=== PATIENT | female | born 1995 | race American Indian/Alaskan Native ===

== ENCOUNTER 2019-05-19 22:14 | Emergency (ER) | payer SELFPAY ==
[2019-05-19 22:33] VITALS: BP 121/80
== END 2019-05-19 23:25 | disposition left against medical advice (07) ==
LOC: ED 22:14
DX: R07.89 Other chest pain (principal); Z53.21 Procedure and treatment not carried out due to patient leaving prior to being seen by health care provider

== ENCOUNTER 2019-05-21 11:49 | Emergency (ER) | payer SELFPAY ==
--- NOTE | 2019-05-21 11:55 | Event Note ---
ED Screening Note ED Screening Note: CP that began three days ago "feels like a ball sitting there" PMHx none no allergies to meds LNMP: 04/24/19 This initial assessment/diagnostic orders/clinical plan/treatment(s) is/are subject to change based on patients health status, clinical progression and re- assessment by fellow clinical providers in the ED. Further treatment and workup at subsequent clinical providers discretion. Patient/guardian urged not to elope from the ED as their condition may be serious if not clinically assessed and managed. Initial orders include: CXR
--- NOTE | 2019-05-21 12:33 | Emergency Department Report ---
ED Chest Pain HPI - General Chief Complaint: Urogenital-Female Stated Complaint: CHEST PAIN/VAGINAL DISCOMFORT Time Seen by Provider: 05/21/19 11:53 Source: patient Mode of arrival: Ambulatory Limitations: No Limitations - History of Present Illness Initial Comments: Eun is a very pleasant healthy 23year-old female without significant past me dical history who presents with chest wall pain syndrome radiating to the left. Pain feels like a ball in her chest. Worse with certain movements. Denies cough. Denies fever. Denies pain. No use of oral contraceptives. She also has mild vaginal discharge f without abdominal pain or fever. MD Complaint: chest pain -: Gradual, days(s) (3) Onset: during rest Pain Radiation: LUE Severity: mild Quality: dull Consistency: constant Worsens With: palpation, movement - Related Data Allergies Allergy/AdvReac Type Severity Reaction Status Date / Time No Known Allergies Allergy Verified 05/21/19 11:49 Heart Score - HEART Score History: Slightly suspicious EKG: Normal Age: < 45 Risk factors: No known risk factors Troponin: < normal limit HEART Score: 0 ED Review of Systems ROS: Stated complaint: CHEST PAIN/VAGINAL DISCOMFORT Other details as noted in HPI Comment: All other systems reviewed and negative Constitutional: denies: fever, malaise Respiratory: denies: cough Cardiovascular: chest pain ED Past Medical Hx - Past Medical History Previous Medical History?: No - Surgical History Additional Surgical History: leg - Social History Smoking Status: Current Every Day Smoker Substance Use Type: None ED Physical Exam - General Limitations: No Limitations General appearance: alert, in no apparent distress - Head Head exam: Present: atraumatic, normocephalic - Eye Eye exam: Present: normal appearance - ENT ENT exam: Present: mucous membranes moist - Neck Neck exam: Present: normal inspection, full ROM - Respiratory Respiratory exam: Present: normal lung sounds bilaterally. Absent: respiratory distress, wheezes, rales, rhonchi - Cardiovascular Cardiovascular Exam: Present: regular rate, normal rhythm, normal heart sounds. Absent: systolic murmur, diastolic murmur, rubs, gallop - GI/Abdominal GI/Abdominal exam: Present: soft, normal bowel sounds. Absent: distended, tenderness, guarding, rebound - Extremities Exam Extremities exam: Present: normal inspection - Back Exam Back exam: Present: normal inspection - Neurological Exam Neurological exam: Present: alert, oriented X3 - Psychiatric Psychiatric exam: Present: normal affect, normal mood - Skin Skin exam: Present: warm, dry, intact, normal color. Absent: rash ED Course Vital Signs 05/21/19 05/21/19 11:52 12:37 Temperature 98.5 F 98.7 F Pulse Rate 107 H 84 Respiratory 16 16 Rate Blood Pressure 130/76 Blood Pressure 117/66 [Left] O2 Sat by Pulse 98 100 Oximetry ED Medical Decision Making - Radiology Data Radiology results: report reviewed Chest radiograph 2 views read by radiologist and myself. No acute process no infiltrate and no pneumothorax normal cardiac silhouette normal mediastinum Vital Signs 05/21/19 05/21/19 11:52 12:37 Temperature 98.5 F 98.7 F Pulse Rate 107 H 84 Respiratory 16 16 Rate Blood Pressure 130/76 Blood Pressure 117/66 [Left] O2 Sat by Pulse 98 100 Oximetry - Medical Decision Making Chest wall pain: PERC negative for PE. I do not suspect pericarditis on this presentation. Report of vaginal discharge endorsed to triage nurse. She does not endorse this symptom to me. I have referred her to outside clinic. Repeat heart rate 84 beats a minute. Critical care attestation.: If time is entered above; I have spent that time in minutes in the direct care of this critically ill patient, excluding procedure time. ED Disposition Clinical Impression: Chest wall pain Disposition: DC-01 TO HOME OR SELFCARE Is pt being admited?: No Does the pt Need Aspirin: No Condition: Stable Instructions: Chest Pain (ED) Referrals: [facility] [Outside] - 3-5 Days Forms: Work/School Release Form(ED)
[2019-05-21 12:39] VITALS: BP 117/66
--- NOTE | 2019-05-21 12:51 | XRay Report ---
CHEST 2 VIEWS INDICATION: CP. COMPARISON: None. FINDINGS: Support devices: None. Heart: Within normal limits. Lungs/Pleura: No acute air space or interstitial disease. No significant pleural effusion. IMPRESSION: No acute findings. Signer Name: Toy Walker MD Signed: 05/21/2019 12:47 PM Workstation Name: [id number]
== END 2019-05-21 13:03 | disposition home or self-care (01) ==
LOC: ED 11:49
DX: R07.89 Other chest pain (principal); F17.200 Nicotine dependence, unspecified, uncomplicated
CPT/HCPCS: 71046